=== PATIENT | male | born 1985 | race Caucasian/White ===

== ENCOUNTER 2017-11-13 07:04 | Emergency (ER) | payer OTHER ==
[~2017-11-13] VITALS: Ht 188 cm; Wt 106.6 kg
[~2017-11-13 07:04] MED LIST: ACETAMINOPHEN-1 EAC1 PO; ACID MED; BACTRIM DS TAB1 EACH PO; BENTYL20 MG PO; COMPAZINE25 M1 RC; FAMOTIDINE PO; FLEXERIL PO; IBUPROFEN 600600 M1 PO; IBUPROFEN 800800 M1 PO; IBUPROFEN 800800 MG PO; KEFLEX500 MG PO; NAPROSYN375 MG PO; NAPROSYN500 MG PO; NOHOMEMEDICATIONS; NORCO 5-325 TA1 EACH PO; NORFLEX100 MG PO; OMEPRAZOLE; PAXIL10 MG; PRILOSEC 10MG C10 M1 PO; ROBAXIN500 MG PO; VICODIN 5-5001 EACH PO; ZOFRAN ODT4 MG PO
[2017-11-13] MEDS ORDERED: PRILOSEC2.5 MG PO (07:18)
[2017-11-13] MEDS ORDERED: IBUPROFEN 800800 MG PO (07:31)
[2017-11-13] MEDS ORDERED: MEDROL DOSPAK21 TA1 PO (07:31)
[2017-11-13] MEDS ORDERED: HYDROCODON-ACE1 EAC7 PO (07:31)
[2017-11-13 07:43] VITALS: BP 130/81
== END 2017-11-13 07:45 | disposition home or self-care (01) ==
LOC: M.ERS 07:04
DX: S46.811A Strain of other muscles, fascia and tendons at shoulder and upper arm level, right arm, initial encounter (principal); K21.9 Gastro-esophageal reflux disease without esophagitis; F17.210 Nicotine dependence, cigarettes, uncomplicated; Z88.8 Allergy status to other drugs, medicaments and biological substances; X50.0XXA Overexertion from strenuous movement or load, initial encounter; Y93.89 Activity, other specified; Y92.89 Other specified places as the place of occurrence of the external cause; Y99.8 Other external cause status

== ENCOUNTER 2018-01-31 02:51 | Emergency (ER) | payer OTHER ==
[~2018-01-31] VITALS: Ht 188 cm; Wt 104.3 kg
[~2018-01-31 02:51] MED LIST changes: +HYDROCODON-ACE1 EAC7 PO; +MEDROL DOSPAK21 TA1 PO; +PRILOSEC2.5 MG PO
[2018-01-31 03:20] LABS: ABSOLUTE BASOPHILS 0.1 thou/uL (0.0-0.2); ABSOLUTE EOSINOPHILS 0.4 thou/uL (0.0-0.7); ABSOLUTE LYMPHOCYTES 2.4 thou/uL (0.8-5.3); ABSOLUTE MONOCYTES 0.6 thou/uL (0.0-1.2); ABSOLUTE NEUTROPHILS 5.2 thou/uL (1.6-8.1); BASOPHILS 1.1 %; EOSINOPHILS 4.3 %; HEMOGLOBIN 16.6 gm/dL (14.0-18.0); LYMPHOCYTES 28.1 %; MCH 32.3 pg (26.0-34.0); MCHC 33.9 g/dL (28.0-37.0); MCV 95.3 fL (80.0-100.0); MPV 8.2 fl. (7.2-11.1); NUCLEATED RBCS 0 /100WBC; PLATELET COUNT* 286 thou/uL (150-400); POLYS 59.5 %; RBC 5.15 mil/uL (4.50-6.00); RDW-CV 13.1 % (10.5-14.5); WBC 8.7 thou/uL (4.0-11.0)
[2018-01-31 03:29] LABS: CREATININE 1.1 mg/dL (0.6-1.3)
[2018-01-31 03:33] LABS: TOTAL BILIRUBIN 0.5 mg/dL (<0.1-1.0); TOTAL PROTEIN 7.6 g/dL (6.4-8.2)
[2018-01-31] MEDS ORDERED: ZOFRAN ODT4 MG SUBLING (05:05)
[2018-01-31] MEDS ORDERED: OMEPRAZOLE 20 M20 M1 PO (05:06)
[2018-01-31 05:13] VITALS: BP 121/82
== END 2018-01-31 05:15 | disposition home or self-care (01) ==
LOC: M.ERS 02:51
PROVIDERS: Family Medicine
DX: R11.2 Nausea with vomiting, unspecified (principal); F17.210 Nicotine dependence, cigarettes, uncomplicated; Z88.8 Allergy status to other drugs, medicaments and biological substances; K21.9 Gastro-esophageal reflux disease without esophagitis; Z90.49 Acquired absence of other specified parts of digestive tract

== ENCOUNTER 2018-06-07 17:05 | Emergency (ER) | payer OTHER ==
[~2018-06-07] VITALS: Ht 188 cm; Wt 114.8 kg
[~2018-06-07 17:05] MED LIST changes: +OMEPRAZOLE 20 M20 M1 PO; +ZOFRAN ODT4 MG SUBLING
[2018-06-07 17:53] LABS: ABSOLUTE BASOPHILS 0.1 thou/uL (0.0-0.2); ABSOLUTE EOSINOPHILS 0.3 thou/uL (0.0-0.7); ABSOLUTE LYMPHOCYTES 2.3 thou/uL (0.8-5.3); ABSOLUTE MONOCYTES 0.5 thou/uL (0.0-1.2); ABSOLUTE NEUTROPHILS 5.4 thou/uL (1.6-8.1); BASOPHILS 0.7 %; EOSINOPHILS 3.7 %; HEMOGLOBIN 16.5 gm/dL (14.0-18.0); LYMPHOCYTES 26.6 %; MCH 32.6 pg (26.0-34.0); MCHC 34.3 g/dL (28.0-37.0); MCV 94.8 fL (80.0-100.0); MONOCYTES 6.3 %; MPV 8.4 fl. (7.2-11.1); NUCLEATED RBCS 0 /100WBC; PLATELET COUNT* 274 thou/uL (150-400); POLYS 62.7 %; RBC 5.06 mil/uL (4.50-6.00); RDW-CV 12.9 % (10.5-14.5); WBC 8.6 thou/uL (4.0-11.0)
[2018-06-07 18:00] LABS: ANION GAP 12 mmol/L (7-16); BUN 14 mg/dL (7-18); CALCIUM 9.1 mg/dL (8.5-10.1); CHLORIDE 102 mmol/L (98-107); CO2 24 mmol/L (21-32); GLUCOSE 78 mg/dL (70-99); POTASSIUM 3.8 mmol/L (3.5-5.1); SODIUM 138 mmol/L (136-145)
[2018-06-07 18:10] LABS: ALBUMIN 4.3 g/dL (3.4-5.0); ALKALINE PHOSPHATASE 84 U/L (46-116); LIPASE 89 U/L (73-393); MAGNESIUM 1.8 mg/dL (1.8-2.4); NT-PRO BRAIN NAT PEPTIDE 60 pg/mL (<300); SGOT 21 U/L (15-37); SGPT 27 U/L (30-65); TOTAL BILIRUBIN 0.7 mg/dL (<0.1-1.0); TOTAL PROTEIN 7.7 g/dL (6.4-8.2); TROPONIN-I LEVEL <0.06 ng/mL (<0.06)
[2018-06-07 19:45] VITALS: BP 115/64
[2018-06-07] MEDS ORDERED: IBUPROFEN 800800 MG PO (19:53)
[2018-06-07] MEDS ORDERED: TRAMADOL 50 MG50 MG PO (19:53)
--- NOTE | 2018-06-08 10:09 | EKG ---
[place] [address] ELECTROCARDIOGRAM REPORT Name: DARÍOLAYLA Hendricks Room: [facility]#: [id number] Admission: 06/07/18 Attend Phys: Discharge: 06/07/18 Date of : 81 Report #: [id number] THIS REPORT FOR: //name// [facility] ED Test Date: 2018-06-07 Test Time: 17:09:26 Pat Name: LAYLA CHANEL Department: Room: Gender: M [employer]: : [id number] Requested By: Benito Pineda Order Number: [id number] MD: Deshawn Dolan Measurements Intervals [place] Rate: 62 P: 47 MS: 136 QRS: 31 QRSD: 93 T: 39 QT: 398 QTc: 405 Interpretive Statements Sinus rhythm Low voltage, precordial leads Baseline wander in lead(s) III Compared to ECG 04/24/2011 17:42:01 Low QRS voltage now present Electronically Signed On 06-08-2018 10:09:07 [employer]LE[employer]ETING [employer]ENT by Deshawn Dolan [email or web address] <ELECTRONICALLY SIGNED> By: Deshawn Dolan MD, [facility] 06/08/18 1009 08 08 Deshawn Dolan MD, FAC /EPI
== END 2018-06-07 19:45 | disposition home or self-care (01) ==
LOC: M.ERS 17:05
PROVIDERS: Emergency Medicine Emergency Medical Services
DX: R07.89 Other chest pain (principal); K21.9 Gastro-esophageal reflux disease without esophagitis; F17.210 Nicotine dependence, cigarettes, uncomplicated; Z88.8 Allergy status to other drugs, medicaments and biological substances; Z90.49 Acquired absence of other specified parts of digestive tract

== ENCOUNTER 2018-09-22 19:55 | Emergency (ER) | payer OTHER ==
[~2018-09-22] VITALS: Ht 188 cm; Wt 98.9 kg
[~2018-09-22 19:55] MED LIST changes: +TRAMADOL 50 MG50 MG PO
[2018-09-22] MEDS ORDERED: TRAMADOL 50 MG50 MG PO (20:52)
[2018-09-22] MEDS ORDERED: PREDNISONE50 MG PO (20:52)
[2018-09-22 21:11] VITALS: BP 121/80
== END 2018-09-22 21:11 | disposition home or self-care (01) ==
LOC: M.ERS 19:55
DX: M25.562 Pain in left knee (principal); K21.9 Gastro-esophageal reflux disease without esophagitis; F17.210 Nicotine dependence, cigarettes, uncomplicated; Z88.8 Allergy status to other drugs, medicaments and biological substances; Z90.49 Acquired absence of other specified parts of digestive tract

== ENCOUNTER 2018-12-03 20:31 | Emergency (ER) | payer OTHER ==
[~2018-12-03] VITALS: Ht 188 cm; Wt 107.0 kg
[~2018-12-03 20:31] MED LIST changes: +PREDNISONE50 MG PO
[2018-12-03] MEDS ORDERED: PRILOSEC OTC20 MG PO (20:44)
[2018-12-03] MEDS ORDERED: ZOFRAN ODT4 MG PO (20:44)
[2018-12-03] MEDS ORDERED: BACTRIM DS TAB1 EACH PO (21:25)
[2018-12-03 21:44] VITALS: BP 107/62
== END 2018-12-03 21:45 | disposition home or self-care (01) ==
LOC: M.ERS 20:31
DX: L03.314 Cellulitis of groin (principal); K21.9 Gastro-esophageal reflux disease without esophagitis; Z90.49 Acquired absence of other specified parts of digestive tract; F17.210 Nicotine dependence, cigarettes, uncomplicated; Z88.8 Allergy status to other drugs, medicaments and biological substances

== ENCOUNTER 2019-07-15 18:20 | Emergency (ER) | payer OTHER ==
[~2019-07-15] VITALS: Ht 188 cm; Wt 104.3 kg
[~2019-07-15 18:20] MED LIST changes: +PRILOSEC OTC20 MG PO
[2019-07-15] MEDS ORDERED: WELLBUTRIN 100100 MG PO (18:40)
[2019-07-15 19:16] LABS: ABSOLUTE MONOCYTES 1.3 thou/uL (0.0-1.2); BASOPHILS 0.5 %; EOSINOPHILS 0.4 %; HEMATOCRIT 48.9 % (42.0-52.0); LYMPHOCYTES 11.8 %; MCH 32.8 pg (26.0-34.0); MCHC 34.7 g/dL (28.0-37.0); MCV 94.6 fL (80.0-100.0); MONOCYTES 15.6 %; MPV 8.2 fl. (7.2-11.1); NUCLEATED RBCS 0 /100WBC; PLATELET COUNT* 300 thou/uL (150-400); POLYS 71.7 %; RBC 5.17 mil/uL (4.50-6.00); RDW-CV 13.1 % (10.5-14.5); WBC 8.3 thou/uL (4.0-11.0)
[2019-07-15 19:34] LABS: CALCIUM 8.8 mg/dL (8.5-10.1); CREATININE 1.3 mg/dL (0.6-1.3); POTASSIUM 3.7 mmol/L (3.5-5.1)
[2019-07-15 19:39] LABS: ALBUMIN 4.6 g/dL (3.4-5.0); TOTAL BILIRUBIN 0.7 mg/dL (<0.1-1.0); TOTAL PROTEIN 8.4 g/dL (6.4-8.2)
[2019-07-15 19:50] LABS: INFLUENZA A ANTIGEN Positive (Negative); INFLUENZA B ANTIGEN Negative (Negative)
[2019-07-15] MEDS ORDERED: ZOFRAN ODT4 MG PO ×2 (20:09→20:17)
[2019-07-15 20:27] VITALS: BP 118/65
== END 2019-07-15 20:27 | disposition home or self-care (01) ==
LOC: M.ERS 18:20
PROVIDERS: Nurse Practitioner Psychiatric/Mental Health
DX: J10.1 Influenza due to other identified influenza virus with other respiratory manifestations (principal); R11.2 Nausea with vomiting, unspecified; K21.9 Gastro-esophageal reflux disease without esophagitis; F17.210 Nicotine dependence, cigarettes, uncomplicated; Z88.8 Allergy status to other drugs, medicaments and biological substances; Z90.49 Acquired absence of other specified parts of digestive tract

== ENCOUNTER 2021-06-27 19:24 | Emergency (ER) | payer OTHER ==
[~2021-06-27] VITALS: Ht 185.4 cm; Wt 113.4 kg
[~2021-06-27 19:24] MED LIST changes: +WELLBUTRIN 100100 MG PO
[2021-06-27 19:30] VITALS: BP 112/81
== END 2021-06-27 19:40 | disposition left against medical advice (07) ==
LOC: M.ERS 19:24
DX: R45.851 Suicidal ideations (principal); Z53.21 Procedure and treatment not carried out due to patient leaving prior to being seen by health care provider